=== PATIENT | male | born 1965 | race Caucasian/White ===

== ENCOUNTER 2024-05-22 14:19 | Emergency (ER) | payer OTHER ==
[2024-05-22] MEDS: Sodium Chloride 0.9% 10 ML Syringe FLUSH PRN (15:29)
[2024-05-22] MEDS: Sodium Chloride 0.9% 2.5 ML Syringe FLUSH PRN (15:30)
[2024-05-22 15:34] LABS: BASOPHILS ABSOLUTE AUTO 0.01 K/uL (0.00-0.20); BASOPHILS PERCENT AUTO 0.2 % (0.0-1.0); EOSINOPHILS ABSOLUTE AUTO 0.01 K/uL (0.00-0.45); EOSINOPHILS PERCENT AUTO 0.2 % (0.0-6.0); HEMATOCRIT 41.1 % (42.0-52.0); HEMOGLOBIN 14.4 g/dL (14.0-18.0); IMMATURE GRAN ABSOLUTE AUTO 0.04 K/uL (0.00-0.05); IMMATURE GRAN PERCENT AUTO 0.9 % (0.0-0.4); LYMPHOCYTES ABSOLUTE AUTO 0.67 K/uL (1.00-4.80); LYMPHOCYTES PERCENT AUTO 14.7 % (24.0-44.0); MEAN CORPUSCULAR HEMOGLOBIN 35.6 pg (28.0-32.0); MEAN CORPUSCULAR VOLUME 101.7 fL (83.0-99.0); MONOCYTES ABSOLUTE AUTO 0.07 K/uL (0.00-0.80); MONOCYTES PERCENT AUTO 1.5 % (0.0-8.0); NEUTROPHILS ABSOLUTE AUTO 3.76 K/uL (1.80-7.70); NEUTROPHILS PERCENT AUTO 82.5 % (41.0-71.0); PLATELET COUNT,PLT 181 K/uL (150-400); RED BLOOD CELL COUNT 4.04 M/uL (4.52-5.90); WHITE BLOOD CELL COUNT,WBC 4.56 K/uL (3.9-11.3)
[2024-05-22 15:59] LABS: CALCIUM 9.2 mg/dL (8.5-10.1); CARBON DIOXIDE,CO2 17.2 mmol/L (21.0-32.0); EST CRCL DRUG DOSING (CG) 81.11 mL/min
[2024-05-22 16:09] LABS: TSH ULTRASENSITIVE 0.62 uIU/mL (0.36-3.74)
[2024-05-22 16:10] LABS: INR 0.97 (0.86-1.11)
[2024-05-22] MEDS: Sodium Chloride 0.9% 1,000 ML IV ONE (17:03)
[2024-05-22] MEDS: Iopamidol 755 MG/ML 500 ML Multipack Bottle IVPUSH STA (17:43)
== END 2024-05-22 18:15 | disposition home or self-care (01) ==
LOC: MW.ED 14:19
DX: R22.1 Localized swelling, mass and lump, neck (principal); Z75.8 Other problems related to medical facilities and other health care; Z88.8 Allergy status to other drugs, medicaments and biological substances; Z79.899 Other long term (current) drug therapy
CPT/HCPCS: 36415; 70491; 80048; 84443; 85025; 85610; 96360; 99284; J3490; J7030; Q9967

== ENCOUNTER 2025-09-04 17:36 | Emergency (ER) | payer OTHER | END 2025-09-04 18:13 | disposition home or self-care (01) | LOC: MW.ED 17:36 | DX: H10.023 Other mucopurulent conjunctivitis, bilateral (principal); I10 Essential (primary) hypertension; Z75.3 Unavailability and inaccessibility of health-care facilities; Z88.8 Allergy status to other drugs, medicaments and biological substances; Z79.899 Other long term (current) drug therapy | CPT/HCPCS: 99282; 99283 ==

== ENCOUNTER 2025-09-12 00:23 | Emergency (ER) | payer OTHER ==
[2025-09-12] MEDS: Fluorescein 1 MG Ophth Strip EYEBOTH ONE (00:43)
[2025-09-12] MEDS: Tetracaine HCl/PF 0.5% 4 ML Bottle EYEBOTH ONE (00:43)
== END 2025-09-12 01:33 | disposition home or self-care (01) ==
LOC: MW.ED 00:23
DX: H10.13 Acute atopic conjunctivitis, bilateral (principal); I10 Essential (primary) hypertension; Z79.899 Other long term (current) drug therapy; Z88.8 Allergy status to other drugs, medicaments and biological substances
CPT/HCPCS: 99283; A9270; J3490